=== PATIENT | male | born 1945 | race Caucasian/White ===

== ENCOUNTER 2020-01-24 11:57 | Inpatient (IN) | payer MEDICARE, OTHER, SELFPAY ==
[2020-01-24] VITALS (21 sets, daily range): BP systolic 64–125; BP diastolic 51–79; PULSE 60–120; RESP 19–32; TEMP 38.2–41.2; O2SAT 93–99
--- NOTE | ~2020-01-24 | CT_ITS ---
EXAMINATION: CT brain wo con DATE: 01/24/2020 13:53 INDICATION: Slurred speech. Unsteady gait. TECHNIQUE: Computed tomography (CT) of the head was performed without intravenous contrast. The mA wa s adjusted according to patient size. Iterative reconstruction technique was employed. The dose-lengt h product was 681.00 mGy-cm. COMPARISON: None FINDINGS: There is no intracranial hemorrhage, acute infarction, or abnormal intracranial mass lesion . There are scattered areas of low attenuation in the cerebral white matter. The ventricles are moshe l in size. There is mucosal thickening in the paranasal sinuses. There are likely changes of left ocu lar lens replacement surgery. The mastoid air cells are normal. IMPRESSION: 1. Mild nonspecific cerebral white matter disease, which likely represents chronic small vessel ische erickson disease. Reviewed, dictated and finalized at location A. IMPRESSION: 1. Mild nonspecific cerebral white matter disease, which likely represents conservation scientist malena small vessel ischemic disease.
--- NOTE | ~2020-01-24 | US_ITS ---
EXAMINATION: US venous doppler [facility] DATE: 01/25/2020 14:55 INDICATION: Atrial fibrillation. Elevated d-dimer. TECHNIQUE: Grayscale ultrasound images without and with compression and Doppler ultrasound images of the bilateral lower extremity veins were obtained. COMPARISON: None. FINDINGS: The visualized portions of right common femoral vein, profunda (deep) femoral vein, femoral vein, pop liteal vein, peroneal veins, posterior tibial veins, and greater saphenous vein outflow are patent. The visualized portions of left common femoral vein, profunda femoral vein, femoral vein, popliteal v ein, peroneal veins, posterior tibial veins, and greater saphenous vein outflow are patent. IMPRESSION: 1. No deep venous thrombosis. Reviewed, dictated and finalized at location A.
--- NOTE | ~2020-01-24 | XR_ITS ---
EXAMINATION: XR chest 1V portable DATE: 01/26/2020 05:33 INDICATION: Fever. TECHNIQUE: A single frontal view of the chest was obtained on 2 radiographs. COMPARISON: Chest 2 views 01/24/2020 FINDINGS: There are mild airspace opacities in the lower lung zones. No pleural effusion or pneumotho rax. The heart size is normal. IMPRESSION: 1. Stable mild airspace opacities in the lower lung zones, likely atelectasis. Reviewed, dictated and finalized at location A.
--- NOTE | ~2020-01-24 | CT_ITS ---
EXAMINATION: CT abdomen pelvis wo con DATE: 01/26/2020 11:04 INDICATION: Fever of unknown origin TECHNIQUE: Computed tomography (CT) of the abdomen and pelvis was performed without intravenous contr ast. The dose-length product (DLP) was 1208.95 mGy-cm. Automated exposure control and iterative recon struction technique were employed. COMPARISON: None FINDINGS: The lung bases are clear. The heart size is normal. There is a small sliding hiatal hernia. The liver, spleen, pancreas, and gallbladder are normal. The left adrenal gland is normal. Low-atten uation masses of the right adrenal gland measuring up to 12 mm are consistent with adenomas. The kidn eys are unremarkable. There is calcified atherosclerosis of the aorta and many of the other arteries. Colonic diverticulosis is present without evidence of diverticulitis. No pathologically enlarged abd ominal or pelvic lymph nodes are identified. There is no free intraperitoneal gas or evidence of raisa l obstruction. There is moderate lumbar spondylosis. There is moderate bilateral hip osteoarthritis. IMPRESSION: 1. No CT correlate for the patient's symptoms. Reviewed, dictated and finalized at location A.
--- NOTE | ~2020-01-24 | XR_ITS ---
EXAMINATION: XR chest 2V DATE: 01/24/2020 13:07 INDICATION: Confusion and weakness. Sepsis. TECHNIQUE: Frontal and lateral views of the chest were obtained on 3 radiographs. COMPARISON: None. FINDINGS: There is mild atelectasis in the lower lung zones. No pleural effusion or pneumothorax. The heart size is normal. IMPRESSION: 1. Mild atelectasis in the lower lung zones. Reviewed, dictated and finalized at location A.
--- NOTE | 2020-01-24 12:14 | ECG_ITS ---
Measurements Intervals [place] Rate: 111 P: 85 LA: 220 QRS: -6 QRSD: 101 T: 66 QT: 327 QTc: 446 Interpretive Statements SINUS TACHYCARDIA WITH FIRST DEGREE AV BLOCK FREQUENT VENTRICULAR PREMATURE COMPLEXES INCOMPLETE RIGHT BUNDLE BRANCH BLOCK ABNORMAL ECG Electronically Signed On 01-24-2020 14:21:17 CDT by Mike Burton D.O.
[2020-01-24 12:45] LABS: Basophils Absolute Auto 0.1 K/mm3 (0.0-0.1); Basophils Percent Auto 0.6 % (0.2-1.2); Eosinophils Percent Auto 0.1 % (0-4.4); Hematocrit 46.6 % (42.0-52.0); Hemoglobin 15.2 g/dL (14.0-18.0); Immature Granulocyte Absolute 0.11 K/mm3 (0.00-0.031); Immature Granulocyte Percent A 0.8 % (0-0.5); Lymphocytes Absolute Auto 0.81 K/mm3 (0.9-3.2); Lymphocytes Percent Auto 5.6 % (18.3-44.2); Mean Corpuscular HGB Conc 32.6 g/dl (32-36); Mean Corpuscular Hemoglobin 32.6 pg (26-34); Mean Platelet Volume 11.9 fl (7.4-10.4); Monocytes Absolute Auto 0.2 K/mm3 (0.1-0.6); Monocytes Percent Auto 1.5 % (2.6-8.5); Neutrophils Absolute Auto 13.1 K/mm3 (1.3-6.7); Neutrophils Percent Auto 91.4 % (45.5-73.1); Platelet Count Result 171 k/mm3 (150-375); Red Blood Count 4.66 M/mm3 (4.6-6.20); Red Cell Distribution Width 13.7 % (11.5-14.5); White Blood Count 14.4 K/mm3 (4.5-10.0)
[2020-01-24 13:02] LABS: Lactic Acid Reflex 2.6 mmol/L (0.7-2.1)
[2020-01-24 13:03] LABS: Alanine Aminotransferase 26 U/L (4-50); Albumin Level 4.2 g/dL (3.5-5.1); Alkaline Phosphatase 58 U/L (38-126); Aspartate Amino Transferase 32 U/L (17-59); Bilirubin,Total 1.4 mg/dL (0.2-1.3); Blood Urea Nitrogen 19 mg/dL (9-20); CRP 2.7 mg/dL (<1.0); Carbon Dioxide 26 mmol/L (22-30); Chloride 101 mmol/L (98-107); Estimated CRCL calculation 70 ml/min; Estimated Glomerular Filt Rate > 60; Glucose 97 mg/dL (75-110); Sodium 135 mmol/L (137-145)
[2020-01-24 13:05] LABS: Add Urine Microscopic? YES; Appearance Urine Clear (Clear); Bilirubin Urine Negative (Negative); Blood Urine Negative (Negative); Color Urine Yellow (Yellow); Glucose Urine UA Negative (Negative); Ketones Urine Negative (Negative); Leukocyte Esterase Ur Negative LEU/UL (Negative); Mucus Urine Few /lpf; Nitrate Urine Negative (Negative); Protein Urine Negative (Negative); Specific Grav Ur 1.024 (1.001-1.035); Squamous Epithelial Cell Urine Rare /hpf (Few); WBC Urine 0-3 /hpf
--- NOTE | 2020-01-24 13:42 | ED.AMS ---
HPI - Altered Mental Status General Chief Complaint: Altered Mental Status Stated Complaint: Neuro symptoms Source: RN notes reviewed History of Present Illness HPI narrative: Patient presents emergency department from home via EMS for fever. History is per the patient as well as is present. The patient is currently dog sitting for his daughter he was last seen yesterday and was normal. This morning the patient had called his asking for help. They arrived the patient was noted to have some confusion difficulty answering questions. Patient currently presents with febrile he is awake and alert and able to answer some questions able to state his name but then when asked to describe answers to other questions these answers do not make sense patient denies any current pain he denies any headaches chest pain cough abdominal pain nausea or vomiting patient is currently on Pradaxa for history of A. fib Related Data Home Medications Medication Instructions Recorded Confirmed acetaminophen [Tylenol 8 Hour] 650 mg PO Q8H 01/24/20 aspirin 81 mg PO DAILY 01/24/20 atorvastatin 40 mg PO HS 01/24/20 bupropion HCl 150 mg PO QAM 01/24/20 dabigatran etexilate [Pradaxa] 150 mg PO BID 01/24/20 docusate sodium [Colace Clear] 50 mg PO DAILY 01/24/20 lisinopril 5 mg PO DAILY 01/24/20 loratadine 10 mg PO DAILY 01/24/20 metoprolol succinate 12.5 mg PO DAILY 01/24/20 tamsulosin 0.4 mg PO HS 01/24/20 Allergies Allergy/AdvReac Type Severity Reaction Status Date / Time Sulfa (Sulfonamide Allergy Other Verified 01/24/20 12:21 Antibiotics) Review of Systems Review of Systems: Narrative: Gen.: Reports fever Eyes: Denies eye pain or visual change ENT: Denies congestion Respiratory: Denies shortness of breath or cough CV: Denies chest pain or palpitations GI: Denies abdominal pain nausea, emesis or diarrhea denies burning, urgency, frequency or hematuria Musculoskeletal: Denies back pain or muscle pain Neuro: Denies numbness, tingling, weakness or focal weakness Skin: Denies rash Except as documented, all other systems reviewed and negative [facility] Past Medical History Medical History (Updated 01/24/20 @ 17:37 by Irving Ortiz DO) Atrial fibrillation Hyperlipidemia Hypertension Social History Social History (Updated 01/24/20 @ 16:11 by KATJA Bryan Smoking status: Never smoker Gender identity (if verbalized by the patient): Male Exam Narrative: Exam Narrative: APPEARANCE: No acute distress, nontoxic, resting in bed EYES: EOMI HEENT: Normocephalic, atraumatic, nares patent, oral mucosa dry erythema exudate posterior pharynx Neck: Supple full range of motion without pain no meningismus RESPIRATORY: No respiratory distress Clear to auscultation bilaterally with no rhonchi wheezing or rales. CARDIOVASCULAR: Regular rate and rhythm without murmurs rubs or gallops. ABDOMINAL: Soft, nontender, nondistended, no rebound or guarding MUSCULOSKELETAl: Moves all extremities. No clubbing, cyanosis or edema. NEURO: Awake and alert x 1. Following commands, speech normal, no focal deficits SKIN:: Warm, dry. No rashes lesions or abrasions PSYCHIATRIC: Normal affect/mood, Course Course Emergency Course: Called and discussed with Dr. velasquez for infectious disease. At this time with patient having no headache and no managements with no nuchal rigidity recommends no treatment for meningitis at this time. With UA and chest x-ray both negative recommends no antibiotics at this time. Agrees with plan for COVID swab Patient will wax and wane with his orientation he will at times be awake and alert x3 other times when the patient's fever spikes back up he will become less awake and alert the patient continues to deny any complaints though even when ANO x3 denies any headaches there is no nuchal rigidity with full range of motion of the neck Discussed with JAHAIRA Hamlin for Dr. Dominguez presentation work-up. Agrees with adm
[2020-01-24 14:08] LABS: INR 1.4; Partial Thromboplastin Time 33.5 SECONDS (22.3-36.8); Prothrombin Time 16.4 Seconds (11.1-14.7)
[2020-01-24 15:39] LABS: Reflex Lactic Acid Yes or No Add Lactic
[2020-01-24 16:07] LABS: Lactic Acid 3.9 mmol/L (0.7-2.1)
[2020-01-24] MEDS: KETOROLAC 15 MG/ML VIAL (*BKC) IV PUSH (16:23)
[2020-01-24] MEDS: SODIUM CHLORIDE 0.9% IV 1,000 ML 125 ML IV CONT (18:59)
--- NOTE | 2020-01-24 19:31 | PM.IMHP ---
H&P: HPI History of Present Illness Chief complaint: Sepsis/fever of unknown origin Narrative: Irving Huston is a 74 year old male To the [facility] with a fever. The patient's was in the emergency earlier and providing information for the ED physician. The patient was currently dog sitting for his daughter was last seen yesterday as normal. This morning he called his asking for help. The patient was confused and did having difficulty answering questions. He is answering some questions but others he is forgetting. The patient could not recall where he was now. He complains of feeling hot. No abdominal pain no complaints of any headaches any nausea or vomiting. He has a history of atrial fibrillation is on Pradaxa. The patient's temperature is currently 103.8?. He had IV Tylenol. The ED physician was unable to provide a spinal tap because the patient is on Pradaxa. We did consult Infectious Disease and initially Dr. velasquez stated he did not want any antibiotics. However Dr. velasquez was called back again to discuss the patient's fever that would not go down with Tylenol. A COVID test was taken and the patient was placed on Rocephin at that time. Once the patient was in the intensive care unit we applied a cooling blanket. Montero catheter with the temperature measurement was placed as well. The patient is very anxious and having difficulty answering questions. He tells me that he does not have any lung disease but had some heart disease and could not explain what type of heart disease he had. He denies any chest pain at this time. Urine was negative for any UTI. Mild nonspecific cerebral white matter disease which likely represents chronic small vessel ischemic disease. Chest x-ray was read as mild atelectasis in the lower lung zones. Patient was started on IV fluids in the emergency room, IV Tylenol, IV Toradol and Rocephin. Source of fever is unknown. Infectious Disease has been consulted. Review of Systems Review of Systems: All systems reviewed & are unremarkable except as noted in HPI and below Constitutional: Constitutional: Reports as per HPI and Reports no additional constitutional complaints Eyes: Eyes: Reports as per HPI and Reports no additional eye complaints ENT: Reports system reviewed and no additional complaints, except as documented and Reports Normal hearing present Cardiovascular: Cardiovascular: Reports no additional cardiovascular complaints Respiratory: Respiratory: Reports no additional respiratory complaints and Reports no additional respiratory complaints Gastrointestinal: Gastrointestinal: Reports as per HPI and Reports no additional gastrointestinal complaints Musculoskeletal: Musculoskeletal: Reports no additional musculoskeletal complaints Integumentary/Breasts: Skin/Breast: Reports system reviewed and no additional complaints, except as docu and Reports as per HPI Neurologic: Reports system reviewed and no additional complaints, except as documented, Reports as per HPI and Reports Normal hearing present Psychiatric: Psychiatric: Reports no additional psychiatric complaints and Reports as per HPI Endocrine: Endocrine: Reports no additional endocrine complaints Hematologic/Lymphatic: Hematologic/Lymphatic: Reports no additional hematologic/lymphatic complaints Allergic/Immunologic: Allergic/Immunologic: Reports no additional allergic/immunologic complaints [facility] Past Medical History Medical History (Updated 01/24/20 @ 19:52 by Yakelin Cardenas NP) Atrial fibrillation Hyperlipidemia Hypertension Surgical History Surgical History (Updated 01/24/20 @ 19:57 by Yakelin Cardenas NP) H/O left knee surgery 1963 History of appendectomy Family History Family History (Updated 01/24/20 @ 19:59 by Yakelin Cardenas NP) Mother Diabetes mellitus Social History Social History (Updated 01/24/20 @ 19:53 by Yakelin Cardenas NP) Social History: The patient tells me that h
[2020-01-24] MEDS: DABIGATRAN ETEXILATE 150 MG CAPSULE PO (20:17)
[2020-01-24] MEDS: LORAZEPAM INJ 2 MG/ML VIAL 0.5 MG IV PUSH (20:17)
[2020-01-24] MEDS: TAMSULOSIN HCL 0.4 MG CAPSULE PO (20:17)
--- NOTE | 2020-01-24 20:35 | ADMGEN ---
This patient, Irving Huston, was admitted to Intensive Care Unit-4 on 01-24-20 at 1745. Patient/family oriented to hospital policies and general routines including ID bracelet, bed and alarms, visiting hours, pain management, procedures, bathroom and other care routines, personal items, smoking policy, room service/diet, and visiting hours. Valuables list has been completed. Information on how to activate the Rapid Response Team has been discussed. Patient/Family are encouraged to report perceived risks to care and to ask questions if they do not understand what they are told or what they should do.
--- NOTE | 2020-01-24 22:55 | PC.NURSE ---
Patient still agressive and thrashing in bed post ativan. Yakelin Cardenas CADASTRAL SURVEYOR notified. Give 5mg Haldol IM x1 now
[2020-01-24] MEDS: HALOPERIDOL LACTATE 5 MG/ML VIAL IM (23:16)
[2020-01-25] VITALS (18 sets, daily range): BP systolic 92–156; BP diastolic 54–68; PULSE 75–109; RESP 12–27; TEMP 36.3–38.9; O2SAT 91–99
--- NOTE | 2020-01-25 01:09 | PC.NURSE ---
Cooling blanket turned off. Temp 100.3 Continue to monitor.
[2020-01-25] MEDS: SODIUM CHLORIDE 0.9% IV 1,000 ML 125 ML IV CONT (02:31)
[2020-01-25] MEDS: LORAZEPAM INJ 2 MG/ML VIAL 0.5 MG IV PUSH (02:31)
[2020-01-25 05:00] LABS: Hematocrit 40.8 % (42.0-52.0); Hemoglobin 13.5 g/dL (14.0-18.0); Immature Platelet Fraction Pct 7.4 % (0.9-11.2); Mean Corpuscular HGB Conc 33.1 g/dl (32-36); Mean Corpuscular Hemoglobin 32.9 pg (26-34); Mean Corpuscular Volume 99.5 fl (80-100); Mean Platelet Volume 11.6 fl (7.4-10.4); Platelet Count Result 127 k/mm3 (150-375); Red Cell Distribution Width 14.2 % (11.5-14.5); White Blood Count 22.5 K/mm3 (4.5-10.0)
[2020-01-25 05:10] LABS: Lactic Acid Reflex 2.8 mmol/L (0.7-2.1)
[2020-01-25 05:18] LABS: Alanine Aminotransferase 31 U/L (4-50); Albumin Level 3.1 g/dL (3.5-5.1); Alkaline Phosphatase 41 U/L (38-126); Aspartate Amino Transferase 78 U/L (17-59); Bilirubin,Total 1.1 mg/dL (0.2-1.3); Blood Urea Nitrogen 24 mg/dL (9-20); Calcium 7.7 mg/dL (8.4-10.2); Carbon Dioxide 24 mmol/L (22-30); Chloride 106 mmol/L (98-107); Estimated CRCL calculation 65 ml/min; Estimated Glomerular Filt Rate 59; Glucose 83 mg/dL (75-110); Potassium 4.3 mmol/L (3.4-5.0); Sodium 135 mmol/L (137-145)
[2020-01-25 05:48] LABS: Band Neutrophils Percent 17 % (0-6); Lymphocytes Absolute Manual 1.12 K/mm3 (1.1-4.5); Monocytes Absolute Manual 1.12 K/mm3 (0.1-0.90); Monocytes Percent Manual 5 % (3-9); Neutrophils Absolute Manual 20.25 K/mm3 (1.3-6.7); Neutrophils Percent Manual 73 % (46-73); Total Cells Counted 100
[2020-01-25 07:54] LABS: Reflex Lactic Acid Yes or No Add Lactic
[2020-01-25] MEDS: buPROPion HCL XL (24 HR) 150 MG TABCR PO (08:12)
[2020-01-25] MEDS: DOCUSATE SODIUM LIQ 100 MG/10 ML UDC 50 MG PO (08:12)
[2020-01-25] MEDS: DABIGATRAN ETEXILATE 150 MG CAPSULE PO ×2 (08:12→17:55)
[2020-01-25] MEDS: ASPIRIN 81 MG ENTERIC TABLET PO (08:12)
[2020-01-25 08:14] LABS: Hematocrit 42.2 % (42.0-52.0); Hemoglobin 13.9 g/dL (14.0-18.0); Immature Platelet Fraction Pct 7.4 % (0.9-11.2); Mean Corpuscular HGB Conc 32.9 g/dl (32-36); Mean Corpuscular Hemoglobin 32.9 pg (26-34); Mean Corpuscular Volume 99.8 fl (80-100); Mean Platelet Volume 11.7 fl (7.4-10.4); Platelet Count Result 129 k/mm3 (150-375); Red Blood Count 4.23 M/mm3 (4.6-6.20); Red Cell Distribution Width 14.2 % (11.5-14.5); White Blood Count 22.7 K/mm3 (4.5-10.0)
[2020-01-25 08:25] LABS: Lactic Acid 1.8 mmol/L (0.7-2.1)
[2020-01-25 08:26] LABS: Alanine Aminotransferase 29 U/L (4-50); Albumin Level 3.2 g/dL (3.5-5.1); Alkaline Phosphatase 41 U/L (38-126); Aspartate Amino Transferase 92 U/L (17-59); Bilirubin,Total 1.1 mg/dL (0.2-1.3); Blood Urea Nitrogen 24 mg/dL (9-20); Calcium 7.5 mg/dL (8.4-10.2); Carbon Dioxide 25 mmol/L (22-30); Chloride 107 mmol/L (98-107); Estimated CRCL calculation 70 ml/min; Estimated Glomerular Filt Rate > 60; Glucose 89 mg/dL (75-110); Potassium 4.4 mmol/L (3.4-5.0); Sodium 137 mmol/L (137-145)
[2020-01-25 08:30] LABS: Band Neutrophils Percent 16 % (0-6); Lymphocytes Absolute Manual 1.13 K/mm3 (1.1-4.5); Metamyelocytes Percent 1 %; Monocytes Absolute Manual 0.22 K/mm3 (0.1-0.90); Monocytes Percent Manual 1 % (3-9); Neutrophils Absolute Manual 21.11 K/mm3 (1.3-6.7); Neutrophils Percent Manual 77 % (46-73); Platelet Estimate Decreased (Adequate); Total Cells Counted 100
[2020-01-25 08:36] LABS: D Dimer 8.18 ug/mL (<0.48)
[2020-01-25 08:55] LABS: CRP 26.9 mg/dL (<1.0)
--- NOTE | 2020-01-25 13:04 | WPDINFPN2 ---
Progress Note: A&P Assessment and Plan (1) Fever of unknown origin (FUO): Code(s): R50.9 - Fever, unspecified Status: Acute Assessment and Plan: 1. Fever with rigors, suspect BSI but source unknown 2. BPH 3. Sulfa allergy REC Ctx #1. No LP needed. CT abd/pelvis. Subjective Date/time seen: 01/25/20 13:04 Objective Data Vital Signs Vital Signs: Vital Signs - 24 hr 01/24/20 14:09 01/24/20 17:01 01/24/20 17:30 Temperature 38.2 C H Pulse Rate 105 H 60 Respiratory Rate 22 H 20 Blood Pressure 99/51 L 98/68 L Pulse Oximetry 96 95 01/24/20 17:45 01/24/20 19:00 01/24/20 19:01 Temperature 39.3 C H 40.7 C H 41.2 C H Pulse Rate 105 H Respiratory Rate 27 H Blood Pressure 123/72 Pulse Oximetry 97 01/24/20 19:02 01/24/20 19:10 01/24/20 19:15 Temperature 40.2 C H 39.9 C H 39.9 C H Pulse Rate 112 H Respiratory Rate 28 H Blood Pressure 64/51 L Pulse Oximetry 94 01/24/20 19:18 01/24/20 19:31 01/24/20 20:00 Temperature 39.9 C H 39.8 C H Pulse Rate 111 H 113 H 113 H Respiratory Rate 26 H 19 27 H Blood Pressure 114/60 113/61 Pulse Oximetry 94 94 99 01/24/20 20:01 01/24/20 21:01 01/24/20 22:00 Temperature 39.4 C H 39.1 C H Pulse Rate 111 H 118 H 119 H Respiratory Rate 21 H 27 H Blood Pressure 125/79 113/63 Pulse Oximetry 96 01/24/20 22:01 01/24/20 23:00 01/24/20 23:36 Temperature 38.6 C H 38.9 C H Pulse Rate 115 H 119 H 117 H Respiratory Rate 25 H 29 H 30 H Blood Pressure 98/68 L 116/60 Pulse Oximetry 95 98 97 01/24/20 23:52 01/25/20 00:00 01/25/20 01:00 Temperature 38.9 C H 38.9 C H 38.0 C H Pulse Rate 109 H 94 Respiratory Rate 26 H 22 H Blood Pressure 114/58 L 127/68 Pulse Oximetry 95 95 01/25/20 02:00 01/25/20 02:59 01/25/20 03:39 Temperature 37.4 C 37.2 C Pulse Rate 92 88 86 Respiratory Rate 20 19 19 Blood Pressure 156/66 H 92/58 L Pulse Oximetry 92 91 92 01/25/20 04:00 01/25/20 05:00 01/25/20 05:57 Temperature 36.8 C 37.1 C Pulse Rate 92 79 75 Respiratory Rate 24 H 18 Blood Pressure 115/56 L 113/62 Pulse Oximetry 95 97 01/25/20 06:00 01/25/20 07:56 01/25/20 08:00 Temperature 37.1 C 37.2 C Pulse Rate 80 81 Respiratory Rate 20 25 H Blood Pressure 108/64 110/61 Pulse Oximetry 95 95 99 01/25/20 10:00 01/25/20 12:00 Temperature 37.5 C Pulse Rate 90 83 Respiratory Rate 24 H Blood Pressure 108/64 Pulse Oximetry 98 Intake/Output Intake/Output: Intake & Output 01/22/20 01/23/20 01/24/20 01/25/20 23:59 23:59 23:59 23:59 Intake Total 3550 3120 Output Total 100 2300 Balance 3450 820 Meds/Results Medications: Active Medications Generic Name Dose Route Start Last Admin Trade Name Freq PRN Reason Stop Dose Admin Aspirin 81 mg 01/25/20 09:00 01/25/20 08:12 Aspirin Ec PO 81 mg DAILY RIRI Administration Bupropion HCl 150 mg 01/25/20 09:00 01/25/20 08:12 Wellbutrin Xl (24 Hr) PO 150 mg QAM RIRI Administration Dabigatran 150 mg 01/24/20 17:00 01/25/20 08:12 Pradaxa PO 150 mg BID RIRI Administration Docusate Sodium 50 mg 01/25/20 09:00 01/25/20 08:12 Colace Liquid PO 02/24/20 09:01 50 mg DAILY RIRI Administration Ceftriaxone Sodium/Dextrose 1 gm in 50 mls @ 100 mls/hr 01/25/20 09:00 01/25/20 08:35 Rocephin 1 Gm/D5w 50 Ml IVPB Infused Q24H RIRI Infusion Acetaminophen 1,000 mg in 100 mls @ 400 mls/hr 01/24/20 18:08 01/25/20 00:07 Ofirmev 1,000 Mg Ivpb IVPB 01/25/20 18:09 Infused Q6H PRN Infusion Pain Rated 4-6 Lorazepam 0.5 mg 01/24/20 20:01 01/25/20 02:31 Ativan Inj IV PUSH 0.5 mg Q6H PRN Administration Anxiety Tamsulosin HCl 0.4 mg 01/24/20 21:00 01/24/20 20:17 Flomax PO 0.4 mg HS RIRI Administration Radiology Results: ITS Impressions Chest X-Ray 01/24/20 13:10 IMPRESSION: 1. Mild atelectasis in the lower lung zones. Head CT 01/24/20 14:02 IMPRESSION: 1. Mild nonspec
[2020-01-25 14:16] LABS: SARS-CoV-2 RNA PCR Negative
--- NOTE | 2020-01-25 18:10 | PM.IMPN ---
Progress Note: A&P Assessment and Plan (1) Fever of unknown origin (FUO): Code(s): R50.9 - Fever, unspecified Status: Acute Assessment and Plan: Infectious disease Dr. velasquez has been consulted. Initially no antibiotics were prescribed however now the patient is on Rocephin 1 g. There was some suspicion for meningitis however the patient was unable to receive a spinal tap is he is on Pradaxa for his atrial fibrillation. Patient has no source of infection at this time. White count is noted to be 14.4. His neutrophil percentage is 91.4. His lactic is 3.9. C reactive protein is 2.7. Chest x-ray and urine oral clear. I have thought about getting his belly as well. However the patient is so agitated at this time I am not sure full be able to get him in the CT scanner. He does not act like he has any abdominal discomfort. Although the stated about a week ago he was complaining of some abdominal discomfort. Patient has a fever of 103.8. Please follow cultures. Patient has been swabbed for covid 19. 01/25/20 18:10 Patient is 74-year-old male with history of atrial fibrillation on Pradaxa patient was doing essentially find day before is coming to hospital, on the day of the admission patient called his to get some help however patient was quite confused was not able to answer appropriately and may need a he did not make any sense patient was brought to the emergency department for further evaluation his temperature was 103? and denied complaint of headache, chest pain shortness of breath cough abdominal pain nausea or vomiting, concerned that patient may have meningitis but LP was not done as patient is on Pradaxa, ID was consulted Rocephin was started, today patient is more alert, also concern the patient may have a COVID-19 and being tested and under isolation, (2) Sepsis: Code(s): A41.9 - Sepsis, unspecified organism Status: Acute Assessment and Plan: Patient's blood pressure is on the soft side and he is tachycardic his lactic is elevated. He is receiving some IV fluids and he is on Rocephin IV piggyback. (3) Suspected COVID-19 virus infection: Code(s): Z20.828 - Contact with and (suspected) exposure to other viral communicable diseases Status: Acute Assessment and Plan: Patient is in isolation her when we are awaiting results (4) BPH (benign prostatic hyperplasia): Code(s): N40.0 - Benign prostatic hyperplasia without lower urinary tract symptoms Status: Chronic Assessment and Plan: Continue with his tamsulosin (5) Hypertension: Code(s): I10 - Essential (primary) hypertension Status: Chronic Assessment and Plan: His blood pressure is on the soft side room holding his lisinopril and metoprolol. (6) Hyperlipidemia: Code(s): E78.5 - Hyperlipidemia, unspecified Status: Chronic Assessment and Plan: I am holding atorvastatin at this time. (7) Atrial fibrillation: Code(s): I48.91 - Unspecified atrial fibrillation Status: Chronic Assessment and Plan: Continue with Pradaxa but holding metoprolol due to his low blood pressure. (8) Elevated d-dimer: Code(s): R79.89 - Other specified abnormal findings of blood chemistry Status: Acute Assessment and Plan: In setting of possible COVID-19 D-dimer was done which is elevated however patient is on urine Pradaxa will do lower extremity Doppler and further recommendation to follow Subjective Date/time seen: 01/25/20 18:10 Patient is 74-year-old male with history of atrial fibrillation on Pradaxa patient was doing essentially find day before is coming to hospital, on the day of the admission patient called his to get some help however patient was quite confused was not able to answer appropriately and may need a he did not make any sense patient was brought to the emergency department for further evaluation his temperature was 103? and den
--- NOTE | 2020-01-25 18:13 | CONS_ITS ---
DATE OF CONSULTATION: 01/25/2020 REASON FOR CONSULTATION: Fever. HISTORY OF PRESENT ILLNESS: The patient is a 74-year-old male who 2 years ago had an acute episode of shaking chills. He did not require hospitalization or medical evaluation and thought nothing more of it. He was otherwise well until 1 day before admission when he developed again shaking chills described as rigors along with some weakness. He had a single headache episode 1 week before. He did not check his temperature at home. He presented to the emergency room yesterday where he was found to be febrile with tachycardia and he was admitted. He has been started on ceftriaxone, now day 2 and consultation requested. He has been on no antibiotics in the last 4 weeks for any reason. No surgeries in the last 3 months. Denies any skin trauma, nausea, vomiting, diarrhea, cough, dyspnea, sputum production, dysphagia. His weight has gone up. He does have a sensation of epigastric fullness, but no abdominal pain. No other abdominal complaints. He does feel like he can empty his bladder well. HABITS: Quarter pack per day smoker. No alcohol. PRESENT MEDICATIONS: No immunosuppressants. ALLERGIES: SULFA. PAST MEDICAL HISTORY: Carries a diagnosis of BPH, AF, hyperlipidemia, hypertension, appendectomy, left knee surgery, not involving a joint replacement. REVIEW OF SYSTEMS: 14-point review otherwise negative. FAMILY HISTORY: Not pertinent to his present illness. SOCIAL HISTORY: He is . He is retired from [employer]. PHYSICAL EXAMINATION: GENERAL: This is an elderly male who appears younger than his actual age. No acute distress. VITAL SIGNS: T-max 41.2, apparently a core temperature, now afebrile 108/64, 83, 24, 98% on room air. SKIN: No rashes. Warm and dry. No breaks in the skin. NODES: He has no cervical or axillary adenopathy. EENT: Conjunctivae normal. Pupils equal, round, and reactive to light. The oropharynx, oral mucosa normal. Teeth in excellent repair. NECK: No masses or thyromegaly. LUNGS: Clear to auscultation and percussion. CHEST: Equal expansion. Normal AP diameter. No indwelling vascular devices. CARDIAC: Regular rate and rhythm. No murmur, gallop, or rub. Pulses are 2+ equal. ABDOMEN: Obese, nontender. No mass. No organomegaly. He has no firmness in the epigastrium nor elsewhere. : No catheter in place. EXTREMITIES: Without clubbing, cyanosis, or edema. Well perfused. LABORATORY DATA: Blood and urine cultures in process. Other laboratory findings, white count 14.4 yesterday, 22.7 today, hemoglobin 13.9, platelets are 129. Differential shows a moderate left shift. D-dimer is elevated. His chemistry panel today is normal other than a BUN of 24 and an AST of 92, ALT was normal, CRP 27, albumin 3.2. His urinalysis, 2 urobilinogen, 6-10 red cells, few mucus threads. RADIOLOGY: Chest x-ray is normal. His CT of the brain, senescent changes. ASSESSMENT: 1. Acute febrile illness of uncertain etiology. Symptoms suggest a bloodstream infection with viral or bacterial cause. Other than his abdominal fullness in the epigastrium, he has no localizing signs or symptoms. He has no ill household contacts and suspicion for coronavirus is very low. 2. Past diagnosis of benign prostatic hypertrophy, but no voiding symptoms admitted to me. 3. Leukocytosis, probably due to the above as well. RECOMMENDATIONS: 1. Ceftriaxone empirically given his elevated lactate level and other clinical findings, rather than observe off antibiotics. 2. No lumbar puncture needed at this time. His mental status on interview today is entirely normal. 3. CT abdomen and pelvis. 4. Follow up on above microbiology testing. Thank you ve
--- NOTE | 2020-01-25 19:00 | PC.NURSE ---
This patient, Irving Huston, was transferred to [facility] via wheelchair on 01/25/20 at 1850. Personal belongings sent with patient. Belongings list checked and signed with receiving RN. Report given to JOEL Lozada. Appropriate documentation sent with patient.
--- NOTE | 2020-01-25 19:10 | PC.NURSE ---
This patient, Irving Huston, was received from ICU 4 on 01/25/20 at 1850. Personal belongings list checked and signed. Patient/family oriented to unit policies and routines
[2020-01-25] MEDS: TAMSULOSIN HCL 0.4 MG CAPSULE PO (22:12)
[2020-01-26] VITALS: BP 120/54; PULSE 76; RESP 16; TEMP 36.2; O2SAT 96
[2020-01-26 05:23] LABS: Basophils Absolute Auto 0.1 K/mm3 (0.0-0.1); Basophils Percent Auto 0.6 % (0.2-1.2); Eosinophils Absolute Auto 0.1 K/mm3 (0-0.3); Eosinophils Percent Auto 0.6 % (0-4.4); Hematocrit 38.6 % (42.0-52.0); Hemoglobin 12.8 g/dL (14.0-18.0); Immature Granulocyte Percent A 0.6 % (0-0.5); Lymphocytes Absolute Auto 1.79 K/mm3 (0.9-3.2); Lymphocytes Percent Auto 11.4 % (18.3-44.2); Mean Corpuscular HGB Conc 33.2 g/dl (32-36); Mean Corpuscular Hemoglobin 32.5 pg (26-34); Mean Platelet Volume 12.8 fl (7.4-10.4); Monocytes Absolute Auto 0.7 K/mm3 (0.1-0.6); Monocytes Percent Auto 4.1 % (2.6-8.5); Neutrophils Percent Auto 82.7 % (45.5-73.1); Platelet Count Result 93 k/mm3 (150-375); Red Blood Count 3.94 M/mm3 (4.6-6.20); Red Cell Distribution Width 14.5 % (11.5-14.5); White Blood Count 15.8 K/mm3 (4.5-10.0)
[2020-01-26 05:55] LABS: Alanine Aminotransferase 32 U/L (4-50); Albumin Level 2.9 g/dL (3.5-5.1); Alkaline Phosphatase 45 U/L (38-126); Aspartate Amino Transferase 100 U/L (17-59); Bilirubin,Total 0.5 mg/dL (0.2-1.3); Blood Urea Nitrogen 21 mg/dL (9-20); CRP 26.3 mg/dL (<1.0); Calcium 7.9 mg/dL (8.4-10.2); Carbon Dioxide 27 mmol/L (22-30); Chloride 107 mmol/L (98-107); Estimated CRCL calculation 85 ml/min; Estimated Glomerular Filt Rate > 60; Glucose 82 mg/dL (75-110); Sodium 136 mmol/L (137-145)
[2020-01-26] MEDS: ASPIRIN 81 MG ENTERIC TABLET PO (09:38)
[2020-01-26] MEDS: DOCUSATE SODIUM LIQ 100 MG/10 ML UDC 50 MG PO (09:38)
[2020-01-26] MEDS: buPROPion HCL XL (24 HR) 150 MG TABCR PO (09:38)
[2020-01-26] MEDS: DABIGATRAN ETEXILATE 150 MG CAPSULE PO ×2 (09:38→17:08)
[2020-01-26 09:51] VITALS: BP 119/67; PULSE 73; RESP 16; TEMP 36.1; O2SAT 96
--- NOTE | 2020-01-26 12:42 | WPDINFPN2 ---
Progress Note: A&P Assessment and Plan (1) Fever of unknown origin (FUO): Code(s): R50.9 - Fever, unspecified Status: Acute Assessment and Plan: 1. Fever with rigors, due to Gram negative bacteremia with infection, source not identified as yet. I reviewed his CT personally (atherosclerosis, abundant stool, otherwise normal) also reviewed radiologist interpretation. Consider (+ hematuria), lower GI, doubt biliary/primary endovascular/pulmonary 2. BPH 3. Sulfa allergy REC Ctx #2, continue. If this is found to be Enterobacteriacae such as E coli, I favor tract as the source. No LP needed. IV therapy at least until 01/28 dose. Subjective Date/time seen: 01/26/20 12:42 Interval history: no new complaints, using BR without difficulty Exam Narrative: Exam Narrative: t max since last visit = 38.6 Const: General: no acute distress Eyes: General: appearance normal, both eyes and all related structures GI: Inspection: non-distended GI Palp: Yes Soft to palpation Skin: General skin exam: normal color and no rashes or lesions noted Extrem: General: normal to inspection and no edema Objective Data Vital Signs Vital Signs: Vital Signs - 24 hr 01/25/20 14:00 01/25/20 16:00 01/25/20 16:32 Temperature 38.6 C H 38.6 C H Pulse Rate 90 94 Respiratory Rate 27 H Blood Pressure 106/56 L Pulse Oximetry 98 01/25/20 17:05 01/25/20 22:00 01/26/20 00:00 Temperature 37.5 C 36.3 C L 36.2 C L Pulse Rate 84 76 Respiratory Rate 12 16 Blood Pressure 97/54 L 120/54 L Pulse Oximetry 95 96 01/26/20 09:51 Temperature 36.1 C L Pulse Rate 73 Respiratory Rate 16 Blood Pressure 119/67 Pulse Oximetry 96 Intake/Output Intake/Output: Intake & Output 01/23/20 01/24/20 01/25/20 01/26/20 23:59 23:59 23:59 23:59 Intake Total 3550 3890 500 Output Total 100 2700 700 Balance 3450 1190 -200 Meds/Results Medications: Active Medications Generic Name Dose Route Start Last Admin Trade Name Freq PRN Reason Stop Dose Admin Aspirin 81 mg 01/25/20 09:00 01/26/20 09:38 Aspirin Ec PO 81 mg DAILY RIRI Administration Bupropion HCl 150 mg 01/25/20 09:00 01/26/20 09:38 Wellbutrin Xl (24 Hr) PO 150 mg QAM RIRI Administration Dabigatran 150 mg 01/24/20 17:00 01/26/20 09:38 Pradaxa PO 150 mg BID RIRI Administration Docusate Sodium 50 mg 01/25/20 09:00 01/26/20 09:38 Colace Liquid PO 02/24/20 09:01 50 mg DAILY RIRI Administration Ceftriaxone Sodium/Dextrose 1 gm in 50 mls @ 100 mls/hr 01/25/20 09:00 01/26/20 10:21 Rocephin 1 Gm/D5w 50 Ml IVPB Infused Q24H RIRI Infusion Lorazepam 0.5 mg 01/24/20 20:01 01/25/20 02:31 Ativan Inj IV PUSH 0.5 mg Q6H PRN Administration Anxiety Tamsulosin HCl 0.4 mg 01/24/20 21:00 01/25/20 22:12 Flomax PO 0.4 mg HS RIRI Administration Radiology Results: ITS Impressions Head CT 01/24/20 14:02 IMPRESSION: 1. Mild nonspecific cerebral white matter disease, which likely represents chronic small vessel ischemic disease. Chest X-Ray 01/26/20 06:28 IMPRESSION: 1. Stable mild airspace opacities in the lower lung zones, likely atelectasis. Abdomen/Pelvis CT 01/26/20 11:39 IMPRESSION: 1. No CT correlate for the patient's symptoms. Labs Labs: Laboratory Results - last 24 hr 01/24/20 01/26/20 01/26/20 15:21 04:47 04:47 WBC 15.8 H RBC 3.94 L Hgb 12.8 L Hct 38.6 L MCV 98.0 MCH 32.5 MCHC 33.2 RDW 14.5 Plt Count 93 L MPV 12.8 H Immature Gran % (Auto) 0.6 H Neut % (Auto) 82.7 H Lymph % (Auto) 11.4 L [place] % (Auto) 4.1 Eos % (Auto) 0.6 Baso % (Auto) 0.6 Lymph # (Auto) 1.79 [place] # (Auto) 0.7 H Eos # (Auto) 0.1 Baso # (Auto) 0.1 Abs Immat Gran (auto) 0.10 H Absolute Neuts (auto) 13.0 H Absolute Nucleated RBC 0.0 Nucleated RBC % 0.0 Sodium 136 L Potassium 4.0 Chloride 107 Carbon D
[2020-01-26 14:15] VITALS: BP 118/66; PULSE 75; RESP 16; TEMP 36.8; O2SAT 99
--- NOTE | 2020-01-26 15:39 | PM.IMPN ---
Progress Note: A&P Assessment and Plan (1) Fever of unknown origin (FUO): Code(s): R50.9 - Fever, unspecified Status: Acute Assessment and Plan: Infectious disease Dr. velasquez has been consulted. Initially no antibiotics were prescribed however now the patient is on Rocephin 1 g. There was some suspicion for meningitis however the patient was unable to receive a spinal tap is he is on Pradaxa for his atrial fibrillation. Patient has no source of infection at this time. White count is noted to be 14.4. His neutrophil percentage is 91.4. His lactic is 3.9. C reactive protein is 2.7. Chest x-ray and urine oral clear. I have thought about getting his belly as well. However the patient is so agitated at this time I am not sure full be able to get him in the CT scanner. He does not act like he has any abdominal discomfort. Although the stated about a week ago he was complaining of some abdominal discomfort. Patient has a fever of 103.8. Please follow cultures. Patient has been swabbed for covid 19. 01/26/20 Patient is 74-year-old male with history of atrial fibrillation on Pradaxa patient was doing essentially find day before is coming to hospital, on the day of the admission patient called his to get some help however patient was quite confused was not able to answer appropriately and may need a he did not make any sense patient was brought to the emergency department for further evaluation his temperature was 103? and denied complaint of headache, chest pain shortness of breath cough abdominal pain nausea or vomiting, concerned that patient may have meningitis but LP was not done as patient is on Pradaxa, ID was consulted Rocephin was started, today patient is more alert, also concern the patient may have a COVID-19 and being tested and under isolation, patient COVID-19 test is negative, today patient complains of generalized body ache but no fever or chills patient seen by Dr. velasquez and suspect patient has a bacteremia will continue Rocephin will follow up on blood culture and further recommendation to follow, patient states he does have history of polymyalgia rheumatica, will get the record from [facility] and will discuss with Dr. velasquez he was symptoms are related to polymyalgia rheumatica however patient does not have any temporal headache or any visual problem (2) Sepsis: Code(s): A41.9 - Sepsis, unspecified organism Status: Acute Assessment and Plan: Patient's blood pressure is on the soft side and he is tachycardic his lactic is elevated. He is receiving some IV fluids and he is on Rocephin IV piggyback. Plan is above (3) Suspected COVID-19 virus infection: Code(s): Z20.828 - Contact with and (suspected) exposure to other viral communicable diseases Status: Acute Assessment and Plan: Patient is in isolation her when we are awaiting results is negative patient is off isolation (4) BPH (benign prostatic hyperplasia): Code(s): N40.0 - Benign prostatic hyperplasia without lower urinary tract symptoms Status: Chronic Assessment and Plan: Continue with his tamsulosin (5) Hypertension: Code(s): I10 - Essential (primary) hypertension Status: Chronic Assessment and Plan: His blood pressure is on the soft side room holding his lisinopril and metoprolol. (6) Hyperlipidemia: Code(s): E78.5 - Hyperlipidemia, unspecified Status: Chronic Assessment and Plan: I am holding atorvastatin at this time. (7) Atrial fibrillation: Code(s): I48.91 - Unspecified atrial fibrillation Status: Chronic Assessment and Plan: Continue with Pradaxa but holding metoprolol due to his low blood pressure. (8) Elevated d-dimer: Code(s): R79.89 - Other specified abnormal findings of blood chemistry Status: Acute Assessment and Plan: In setting of possible COVID-19 D-dimer was done which is elevated however
[2020-01-26] MEDS: TAMSULOSIN HCL 0.4 MG CAPSULE PO (21:28)
[2020-01-26] MEDS: MELATONIN 3 MG TABLET PO (21:28)
[2020-01-26 22:00] VITALS: BP 124/68; PULSE 74; RESP 20; TEMP 36.1; O2SAT 97
[2020-01-27 04:52] LABS: Basophils Absolute Auto 0.1 K/mm3 (0.0-0.1); Basophils Percent Auto 0.6 % (0.2-1.2); Eosinophils Absolute Auto 0.3 K/mm3 (0-0.3); Eosinophils Percent Auto 2.9 % (0-4.4); Hematocrit 38.4 % (42.0-52.0); Hemoglobin 12.8 g/dL (14.0-18.0); Immature Granulocyte Absolute 0.06 K/mm3 (0.00-0.031); Immature Granulocyte Percent A 0.6 % (0-0.5); Lymphocytes Percent Auto 15.8 % (18.3-44.2); Mean Corpuscular HGB Conc 33.3 g/dl (32-36); Mean Corpuscular Hemoglobin 32.6 pg (26-34); Mean Corpuscular Volume 97.7 fl (80-100); Mean Platelet Volume 12.2 fl (7.4-10.4); Monocytes Absolute Auto 0.8 K/mm3 (0.1-0.6); Monocytes Percent Auto 8.1 % (2.6-8.5); Neutrophils Absolute Auto 6.9 K/mm3 (1.3-6.7); Platelet Count Result 103 k/mm3 (150-375); Red Blood Count 3.93 M/mm3 (4.6-6.20); Red Cell Distribution Width 14.6 % (11.5-14.5); White Blood Count 9.5 K/mm3 (4.5-10.0)
[2020-01-27 05:27] LABS: Alanine Aminotransferase 38 U/L (4-50); Albumin Level 3.1 g/dL (3.5-5.1); Alkaline Phosphatase 44 U/L (38-126); Aspartate Amino Transferase 83 U/L (17-59); Bilirubin,Total 0.5 mg/dL (0.2-1.3); Blood Urea Nitrogen 21 mg/dL (9-20); CRP 15.7 mg/dL (<1.0); Calcium 8.1 mg/dL (8.4-10.2); Carbon Dioxide 27 mmol/L (22-30); Chloride 108 mmol/L (98-107); Estimated CRCL calculation 84 ml/min; Estimated Glomerular Filt Rate > 60; Glucose 87 mg/dL (75-110); Potassium 4.3 mmol/L (3.4-5.0); Sodium 139 mmol/L (137-145)
[2020-01-27 06:00] VITALS: BP 124/70; PULSE 71; RESP 20; TEMP 36.9; O2SAT 95
[2020-01-27] MEDS: ASPIRIN 81 MG ENTERIC TABLET PO (08:20)
[2020-01-27] MEDS: DOCUSATE SODIUM LIQ 100 MG/10 ML UDC 50 MG PO (08:20)
[2020-01-27] MEDS: buPROPion HCL XL (24 HR) 150 MG TABCR PO (08:20)
[2020-01-27] MEDS: DABIGATRAN ETEXILATE 150 MG CAPSULE PO ×2 (08:20→17:14)
[2020-01-27 14:00] VITALS: BP 117/90; PULSE 63; RESP 18; TEMP 37; O2SAT 98
--- NOTE | 2020-01-27 14:22 | WPDINFPN2 ---
Progress Note: A&P Assessment and Plan (1) Fever of unknown origin (FUO): Code(s): R50.9 - Fever, unspecified Status: Acute Assessment and Plan: 1. Fever with rigors, due to Gram negative bacteremia with infection, source not identified as yet, but I suspect urinary source. No updates on blood isolate today. 2. BPH 3. 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 His present illness is not due to this diagnosis. REC Ctx #3, continue. If this is found to be Enterobacteriacae such as E coli, I favor tract as the source. No LP needed. He is very eager to go home, but discussed with him that we need final micro results before oral therapy. If oral antibiotic such as cefdinir shows activity, then ok for discharge sooner than 01/28 dose. Antibiotics needed overall through 02/02. He should see his primary MD at [facility] re: hematuria f/u, and to discuss other meds for his BPH. See me prn Subjective Date/time seen: 01/27/20 14:22 Interval history: I reviewed 134 pages of [facility] records sent here yesterday. He notes no effect from the tamsulosin, and has chronic urgency and nocturia. Exam Narrative: Exam Narrative: afebrile Const: General: no acute distress Resp: Effort & Inspection: normal respiratory effort Auscultation: clear to auscultation bilaterally Cardio: Rate: regular rate Rhythm: regular rhythm Heart sounds: no murmurs GI: Inspection: non-distended GI Palp: Yes Soft to palpation and No Tenderness to palpation present (GI) : Other: no cvat Objective Data Vital Signs Vital Signs: Vital Signs - 24 hr 01/26/20 22:00 01/27/20 06:00 Temperature 36.1 C L 36.9 C Pulse Rate 74 71 Respiratory Rate 20 20 Blood Pressure 124/68 124/70 Pulse Oximetry 97 95 Intake/Output Intake/Output: Intake & Output 01/24/20 01/25/20 01/26/20 01/27/20 23:59 23:59 23:59 23:59 Intake Total 3550 3890 1600 920 Output Total 100 2700 1500 Balance 3450 1190 100 920 Meds/Results Medications: Active Medications Generic Name Dose Route Start Last Admin Trade Name Freq PRN Reason Stop Dose Admin Aspirin 81 mg 01/25/20 09:00 01/27/20 08:20 Aspirin Ec PO 81 mg DAILY RIRI Administration Bupropion HCl 150 mg 01/25/20 09:00 01/27/20 08:20 Wellbutrin Xl (24 Hr) PO 150 mg QAM RIRI Administration Dabigatran 150 mg 01/24/20 17:00 01/27/20 08:20 Pradaxa PO 150 mg BID RIRI Administration Docusate Sodium 50 mg 01/25/20 09:00 01/27/20 08:20 Colace Liquid PO 02/24/20 09:01 50 mg DAILY RIRI Administration Ceftriaxone Sodium/Dextrose 1 gm in 50 mls @ 100 mls/hr 01/25/20 09:00 01/27/20 08:50 Rocephin 1 Gm/D5w 50 Ml IVPB Infused Q24H RIRI Infusion Lorazepam 0.5 mg 01/24/20 20:01 01/25/20 02:31 Ativan Inj IV PUSH 0.5 mg Q6H PRN Administration Anxiety Melatonin 3 mg 01/26/20 18:31 01/26/20 21:28 Melatonin PO 3 mg HS PRN Administration Insomnia Tamsulosin HCl 0.4 mg 01/24/20 21:00 01/26/20 21:28 Flomax PO 0.4 mg HS RIRI Administration Radiology Results: ITS Impressions Head CT 01/24/20 14:02 IMPRESSION: 1. Mild nonspecific cerebral white matter disease, which likely represents chronic small vessel ischemic disease. Chest X-Ray 01/26/20 06:28 IMPRESSION: 1. Stable mild airspace opacities in the lower lung zones, likely atelectasis. Abdomen/Pelvis CT 01/26/20 11:39 IMPRESSION: 1. No CT correlate for the patient's symptoms. Venous Doppler Study 01/27/20 07:44 IMPRESSION: 1. No deep venous thrombosis. Labs Labs: Laboratory Results - last 24 hr 01/27/20 01/27/20 04:37 04:37 WBC 9.5 RBC 3.93 L Hgb 12.8 L Hct 38.4 L MCV 97.7 MCH 32.6 MCHC 33.3 RDW 14.6 H Plt Count 103 L MPV 12.2 H Immature Gran % (Auto) 0.6 H Neut % (Auto) 72.0 Lymph % (Auto) 15.8 L [place] % (Auto) 8.1 Eos % (Auto) 2.9 Baso % (Auto) 0.6 Lymph # (Auto) 1.50 [place] # (Auto) 0.8
--- NOTE | 2020-01-27 14:42 | PM.IMPN ---
Progress Note: A&P Assessment and Plan (1) Fever of unknown origin (FUO): Code(s): R50.9 - Fever, unspecified Status: Acute Assessment and Plan: 01/27/20 14:[address] velasquez has been consulted. Initially no antibiotics were prescribed however now the patient is on Rocephin 1 g. There was some suspicion for meningitis however the patient was unable to receive a spinal tap is he is on Pradaxa for his atrial fibrillation. Patient has no source of infection at this time. White count is noted to be 14.4. His neutrophil percentage is 91.4. His lactic is 3.9. C reactive protein is 2.7. Chest x-ray and urine oral clear. I have thought about getting his belly as well. However the patient is so agitated at this time I am not sure full be able to get him in the CT scanner. He does not act like he has any abdominal discomfort. Although the stated about a week ago he was complaining of some abdominal discomfort. Patient has a fever of 103.8. Please follow cultures. Patient has been swabbed for covid 19. Patient is 74-year-old male with history of atrial fibrillation on Pradaxa patient was doing essentially find day before is coming to hospital, on the day of the admission patient called his to get some help however patient was quite confused was not able to answer appropriately and may need a he did not make any sense patient was brought to the emergency department for further evaluation his temperature was 103? and denied complaint of headache, chest pain shortness of breath cough abdominal pain nausea or vomiting, concerned that patient may have meningitis but LP was not done as patient is on Pradaxa, ID was consulted Rocephin was started, today patient is more alert, also concern the patient may have a COVID-19 and being tested and under isolation, patient COVID-19 test is negative, today patient complains of generalized body ache but no fever or chills patient seen by Dr. velasquez and suspect patient has a bacteremia will continue Rocephin will follow up on blood culture and further recommendation to follow, patient states he does have history of polymyalgia rheumatica, will get the record from [facility] and will discuss with Dr. velasquez he was symptoms are related to polymyalgia rheumatica however patient does not have any temporal headache or any visual problem, today patient again seen by Dr. velasquez suspect patient has bacteremia most likely secondary urinary source pending culture report, clinically patient is improving no fever for 48 hours, Dr. velasquez is recommending continue antibiotics until blood cultures return and further recommendation to follow (2) Sepsis: Code(s): A41.9 - Sepsis, unspecified organism Status: Acute Assessment and Plan: Patient's blood pressure is on the soft side and he is tachycardic his lactic is elevated. He is receiving some IV fluids and he is on Rocephin IV piggyback. Plan is above (3) Suspected COVID-19 virus infection: Code(s): Z20.828 - Contact with and (suspected) exposure to other viral communicable diseases Status: Acute Assessment and Plan: Patient is in isolation her when we are awaiting results is negative patient is off isolation (4) BPH (benign prostatic hyperplasia): Code(s): N40.0 - Benign prostatic hyperplasia without lower urinary tract symptoms Status: Chronic Assessment and Plan: Continue with his tamsulosin (5) Hypertension: Code(s): I10 - Essential (primary) hypertension Status: Chronic Assessment and Plan: His blood pressure is on the soft side room holding his lisinopril and metoprolol. (6) Hyperlipidemia: Code(s): E78.5 - Hyperlipidemia, unspecified Status: Chronic Assessment and Plan: I am holding atorvastatin at this time. (7) Atrial fibrillation: Code(s): I48.91 - Unspecified atrial fibrillation Status: Chronic Assessment and P
[2020-01-27] MEDS: TAMSULOSIN HCL 0.4 MG CAPSULE PO (20:48)
[2020-01-27] MEDS: MELATONIN 3 MG TABLET PO (20:50)
[2020-01-27 22:00] VITALS: BP 123/67; PULSE 60; RESP 16; TEMP 36.8; O2SAT 96
[2020-01-28 05:31] VITALS: BP 132/72; PULSE 66; RESP 16; TEMP 36.8; O2SAT 94
[2020-01-28 06:52] LABS: Basophils Absolute Auto 0.1 K/mm3 (0.0-0.1); Basophils Percent Auto 0.7 % (0.2-1.2); Eosinophils Absolute Auto 0.3 K/mm3 (0-0.3); Eosinophils Percent Auto 4.6 % (0-4.4); Hematocrit 38.5 % (42.0-52.0); Hemoglobin 12.8 g/dL (14.0-18.0); Immature Granulocyte Absolute 0.03 K/mm3 (0.00-0.031); Immature Granulocyte Percent A 0.4 % (0-0.5); Lymphocytes Absolute Auto 1.76 K/mm3 (0.9-3.2); Lymphocytes Percent Auto 26.3 % (18.3-44.2); Mean Corpuscular HGB Conc 33.2 g/dl (32-36); Mean Corpuscular Hemoglobin 31.9 pg (26-34); Mean Platelet Volume 11.9 fl (7.4-10.4); Monocytes Absolute Auto 0.9 K/mm3 (0.1-0.6); Monocytes Percent Auto 12.7 % (2.6-8.5); Neutrophils Absolute Auto 3.7 K/mm3 (1.3-6.7); Neutrophils Percent Auto 55.3 % (45.5-73.1); Platelet Count Result 128 k/mm3 (150-375); Red Blood Count 4.01 M/mm3 (4.6-6.20); Red Cell Distribution Width 14.6 % (11.5-14.5); White Blood Count 6.7 K/mm3 (4.5-10.0)
[2020-01-28 07:06] LABS: Alanine Aminotransferase 35 U/L (4-50); Albumin Level 3.3 g/dL (3.5-5.1); Alkaline Phosphatase 45 U/L (38-126); Aspartate Amino Transferase 53 U/L (17-59); Bilirubin,Total 0.9 mg/dL (0.2-1.3); Blood Urea Nitrogen 19 mg/dL (9-20); CRP 6.4 mg/dL (<1.0); Calcium 8.4 mg/dL (8.4-10.2); Carbon Dioxide 27 mmol/L (22-30); Chloride 106 mmol/L (98-107); Estimated CRCL calculation 94 ml/min; Estimated Glomerular Filt Rate > 60; Glucose 95 mg/dL (75-110); Sodium 138 mmol/L (137-145)
[2020-01-28 08:00] VITALS: PULSE 66; RESP 16; O2SAT 94
[2020-01-28] MEDS: DOCUSATE SODIUM LIQ 100 MG/10 ML UDC 50 MG PO (08:30)
[2020-01-28] MEDS: ASPIRIN 81 MG ENTERIC TABLET PO (08:31)
[2020-01-28] MEDS: DABIGATRAN ETEXILATE 150 MG CAPSULE PO ×2 (08:31→18:01)
[2020-01-28] MEDS: buPROPion HCL XL (24 HR) 150 MG TABCR PO (08:31)
--- NOTE | 2020-01-28 13:44 | PM.IMPN ---
Progress Note: A&P Assessment and Plan (1) Fever of unknown origin (FUO): Code(s): R50.9 - Fever, unspecified Status: Acute Assessment and Plan: 01/28/20 13:[address] velasquez has been consulted. Initially no antibiotics were prescribed however now the patient is on Rocephin 1 g. There was some suspicion for meningitis however the patient was unable to receive a spinal tap is he is on Pradaxa for his atrial fibrillation. Patient has no source of infection at this time. White count is noted to be 14.4. His neutrophil percentage is 91.4. His lactic is 3.9. C reactive protein is 2.7. Chest x-ray and urine oral clear. I have thought about getting his belly as well. However the patient is so agitated at this time I am not sure full be able to get him in the CT scanner. He does not act like he has any abdominal discomfort. Although the stated about a week ago he was complaining of some abdominal discomfort. Patient has a fever of 103.8. Please follow cultures. Patient has been swabbed for covid 19. Patient is 74-year-old male with history of atrial fibrillation on Pradaxa patient was doing essentially find day before is coming to hospital, on the day of the admission patient called his to get some help however patient was quite confused was not able to answer appropriately and may need a he did not make any sense patient was brought to the emergency department for further evaluation his temperature was 103? and denied complaint of headache, chest pain shortness of breath cough abdominal pain nausea or vomiting, concerned that patient may have meningitis but LP was not done as patient is on Pradaxa, ID was consulted Rocephin was started, today patient is more alert, also concern the patient may have a COVID-19 and being tested and under isolation, patient COVID-19 test is negative, today patient complains of generalized body ache but no fever or chills patient seen by Dr. velasquez and suspect patient has a bacteremia will continue Rocephin will follow up on blood culture and further recommendation to follow, patient states he does have history of polymyalgia rheumatica, will get the record from [facility] and will discuss with Dr. velasquez he was symptoms are related to polymyalgia rheumatica however patient does not have any temporal headache or any visual problem, today patient again seen by Dr. velasquez suspect patient has bacteremia most likely secondary urinary source pending culture report, clinically patient is improving no fever for 48 hours, Dr. velasquez is recommending continue antibiotics until blood cultures return, today premilinary blood culture showed gram-negative bacilli as growing will follow up on sensitivity and identification, and further recommendation to follow, patient stats her had 2 good BM and her feels better. denies any fever or chills, stats feeling better on wants to go home. (2) Sepsis: Code(s): A41.9 - Sepsis, unspecified organism Status: Acute Assessment and Plan: Patient's blood pressure is on the soft side and he is tachycardic his lactic is elevated. He is receiving some IV fluids and he is on Rocephin IV piggyback. Plan is above (3) Suspected COVID-19 virus infection: Code(s): Z20.828 - Contact with and (suspected) exposure to other viral communicable diseases Status: Acute Assessment and Plan: Patient is in isolation her when we are awaiting results is negative patient is off isolation (4) BPH (benign prostatic hyperplasia): Code(s): N40.0 - Benign prostatic hyperplasia without lower urinary tract symptoms Status: Chronic Assessment and Plan: Continue with his tamsulosin (5) Hypertension: Code(s): I10 - Essential (primary) hypertension Status: Chronic Assessment and Plan: His blood pressure is on the soft side room holding his lisinopril and metoprolol. (6) Hyperlipidemia: Code(s): E78.5 - H
[2020-01-28 14:00] VITALS: BP 116/57; PULSE 62; RESP 18; TEMP 36.3; O2SAT 99
[2020-01-28] MEDS: TAMSULOSIN HCL 0.4 MG CAPSULE PO (20:27)
[2020-01-28] MEDS: MELATONIN 3 MG TABLET PO (20:27)
[2020-01-28 22:00] VITALS: BP 120/79; PULSE 48; RESP 16; TEMP 36.7; O2SAT 95
[2020-01-29 05:16] LABS: Basophils Absolute Auto 0.1 K/mm3 (0.0-0.1); Eosinophils Absolute Auto 0.4 K/mm3 (0-0.3); Eosinophils Percent Auto 5.9 % (0-4.4); Hematocrit 41.4 % (42.0-52.0); Hemoglobin 13.9 g/dL (14.0-18.0); Immature Granulocyte Absolute 0.06 K/mm3 (0.00-0.031); Immature Granulocyte Percent A 0.8 % (0-0.5); Lymphocytes Absolute Auto 2.44 K/mm3 (0.9-3.2); Lymphocytes Percent Auto 34.5 % (18.3-44.2); Mean Corpuscular HGB Conc 33.6 g/dl (32-36); Mean Corpuscular Hemoglobin 32.6 pg (26-34); Mean Corpuscular Volume 97.2 fl (80-100); Mean Platelet Volume 11.8 fl (7.4-10.4); Monocytes Absolute Auto 0.9 K/mm3 (0.1-0.6); Monocytes Percent Auto 13.2 % (2.6-8.5); Neutrophils Absolute Auto 3.2 K/mm3 (1.3-6.7); Neutrophils Percent Auto 44.6 % (45.5-73.1); Platelet Count Result 152 k/mm3 (150-375); Red Blood Count 4.26 M/mm3 (4.6-6.20); Red Cell Distribution Width 14.6 % (11.5-14.5); White Blood Count 7.1 K/mm3 (4.5-10.0)
[2020-01-29 05:31] LABS: Alanine Aminotransferase 36 U/L (4-50); Albumin Level 3.7 g/dL (3.5-5.1); Alkaline Phosphatase 56 U/L (38-126); Aspartate Amino Transferase 42 U/L (17-59); Bilirubin,Total 1.2 mg/dL (0.2-1.3); Blood Urea Nitrogen 16 mg/dL (9-20); CRP 4.6 mg/dL (<1.0); Calcium 9.1 mg/dL (8.4-10.2); Carbon Dioxide 27 mmol/L (22-30); Chloride 105 mmol/L (98-107); Estimated CRCL calculation 94 ml/min; Estimated Glomerular Filt Rate > 60; Glucose 101 mg/dL (75-110); Potassium 3.9 mmol/L (3.4-5.0); Sodium 138 mmol/L (137-145)
[2020-01-29 06:00] VITALS: BP 115/53; PULSE 73; RESP 16; TEMP 36.7; O2SAT 95
[2020-01-29 08:00] VITALS: PULSE 73; RESP 16; O2SAT 95
[2020-01-29] MEDS: DOCUSATE SODIUM LIQ 100 MG/10 ML UDC 50 MG PO (08:27)
[2020-01-29] MEDS: ASPIRIN 81 MG ENTERIC TABLET PO (08:29)
[2020-01-29] MEDS: DABIGATRAN ETEXILATE 150 MG CAPSULE PO ×2 (08:29→17:00)
[2020-01-29] MEDS: buPROPion HCL XL (24 HR) 150 MG TABCR PO (08:30)
[2020-01-29 13:47] VITALS: BP 127/88; PULSE 65; RESP 18; TEMP 36.7; O2SAT 97
--- NOTE | 2020-01-29 15:31 | PM.IMPN ---
Progress Note: A&P Assessment and Plan (1) Fever of unknown origin (FUO): Code(s): R50.9 - Fever, unspecified Status: Acute Assessment and Plan: 01/29/20 15:[address] velasquez has been consulted. Initially no antibiotics were prescribed however now the patient is on Rocephin 1 g. There was some suspicion for meningitis however the patient was unable to receive a spinal tap is he is on Pradaxa for his atrial fibrillation. Patient has no source of infection at this time. White count is noted to be 14.4. His neutrophil percentage is 91.4. His lactic is 3.9. C reactive protein is 2.7. Chest x-ray and urine oral clear. I have thought about getting his belly as well. However the patient is so agitated at this time I am not sure full be able to get him in the CT scanner. He does not act like he has any abdominal discomfort. Although the stated about a week ago he was complaining of some abdominal discomfort. Patient has a fever of 103.8. Please follow cultures. Patient has been swabbed for covid 19. Patient is 74-year-old male with history of atrial fibrillation on Pradaxa patient was doing essentially find day before is coming to hospital, on the day of the admission patient called his to get some help however patient was quite confused was not able to answer appropriately and may need a he did not make any sense patient was brought to the emergency department for further evaluation his temperature was 103? and denied complaint of headache, chest pain shortness of breath cough abdominal pain nausea or vomiting, concerned that patient may have meningitis but LP was not done as patient is on Pradaxa, ID was consulted Rocephin was started, today patient is more alert, also concern the patient may have a COVID-19 and being tested and under isolation, patient COVID-19 test is negative, today patient complains of generalized body ache but no fever or chills patient seen by Dr. velasquez and suspect patient has a bacteremia will continue Rocephin will follow up on blood culture and further recommendation to follow, patient states he does have history of polymyalgia rheumatica, will get the record from [facility] and will discuss with Dr. velasquez he was symptoms are related to polymyalgia rheumatica however patient does not have any temporal headache or any visual problem, today patient again seen by Dr. velasquez suspect patient has bacteremia most likely secondary urinary source pending culture report, clinically patient is improving no fever for 48 hours, Dr. velasquez is recommending continue antibiotics until blood cultures return, today premilinary blood culture showed gram-negative bacilli as growing will follow up on sensitivity and identification, and further recommendation to follow, patient stats he had 2 good BM on 01/27 and he feels better. denies any fever or chills, stats feeling better on wants to go home. hopefully will know results of blood culture tomorrow, and may discharge him on oral abx. (2) Sepsis: Code(s): A41.9 - Sepsis, unspecified organism Status: Acute Assessment and Plan: Patient's blood pressure is on the soft side and he is tachycardic his lactic is elevated. He is receiving some IV fluids and he is on Rocephin IV piggyback. Plan is above (3) Suspected COVID-19 virus infection: Code(s): Z20.828 - Contact with and (suspected) exposure to other viral communicable diseases Status: Acute Assessment and Plan: Patient is in isolation her when we are awaiting results is negative patient is off isolation (4) BPH (benign prostatic hyperplasia): Code(s): N40.0 - Benign prostatic hyperplasia without lower urinary tract symptoms Status: Chronic Assessment and Plan: Continue with his tamsulosin (5) Hypertension: Code(s): I10 - Essential (primary) hypertension Status: Chronic Assessment and Plan: His blood pressure is on the soft
[2020-01-29 20:00] VITALS: PULSE 69; RESP 16; O2SAT 98
[2020-01-29] MEDS: TAMSULOSIN HCL 0.4 MG CAPSULE PO (20:29)
[2020-01-29 21:15] VITALS: BP 131/80; PULSE 69; RESP 16; TEMP 36.5; O2SAT 98
--- NOTE | 2020-01-29 21:18 | PC.NURSE ---
Pt requesting that Colace continues at home. Pt is on liquid and I explained that it may be bought over the counter and would not need a script for this.
[2020-01-30 05:49] VITALS: BP 114/67; PULSE 95; RESP 18; TEMP 36.6; O2SAT 97
[2020-01-30 06:08] LABS: Basophils Absolute Auto 0.1 K/mm3 (0.0-0.1); Basophils Percent Auto 0.9 % (0.2-1.2); Eosinophils Absolute Auto 0.4 K/mm3 (0-0.3); Eosinophils Percent Auto 4.2 % (0-4.4); Hematocrit 43.6 % (42.0-52.0); Hemoglobin 14.5 g/dL (14.0-18.0); Immature Granulocyte Absolute 0.13 K/mm3 (0.00-0.031); Immature Granulocyte Percent A 1.4 % (0-0.5); Lymphocytes Absolute Auto 2.86 K/mm3 (0.9-3.2); Lymphocytes Percent Auto 31.6 % (18.3-44.2); Mean Corpuscular HGB Conc 33.3 g/dl (32-36); Mean Corpuscular Volume 96.2 fl (80-100); Mean Platelet Volume 11.7 fl (7.4-10.4); Monocytes Absolute Auto 1.3 K/mm3 (0.1-0.6); Monocytes Percent Auto 14.7 % (2.6-8.5); Neutrophils Absolute Auto 4.3 K/mm3 (1.3-6.7); Neutrophils Percent Auto 47.2 % (45.5-73.1); Platelet Count Result 207 k/mm3 (150-375); Red Blood Count 4.53 M/mm3 (4.6-6.20); Red Cell Distribution Width 14.4 % (11.5-14.5)
[2020-01-30 06:26] LABS: Alanine Aminotransferase 38 U/L (4-50); Albumin Level 4.2 g/dL (3.5-5.1); Alkaline Phosphatase 59 U/L (38-126); Aspartate Amino Transferase 41 U/L (17-59); Bilirubin,Total 1.3 mg/dL (0.2-1.3); Blood Urea Nitrogen 16 mg/dL (9-20); Calcium 9.3 mg/dL (8.4-10.2); Carbon Dioxide 30 mmol/L (22-30); Chloride 102 mmol/L (98-107); Estimated CRCL calculation 84 ml/min; Estimated Glomerular Filt Rate > 60; Glucose 96 mg/dL (75-110); Sodium 137 mmol/L (137-145)
[2020-01-30] MEDS: DABIGATRAN ETEXILATE 150 MG CAPSULE PO (08:16)
[2020-01-30] MEDS: buPROPion HCL XL (24 HR) 150 MG TABCR PO (08:16)
[2020-01-30] MEDS: ASPIRIN 81 MG ENTERIC TABLET PO (08:16)
[2020-01-30] MEDS: DOCUSATE SODIUM LIQ 100 MG/10 ML UDC 50 MG PO (08:17)
[2020-01-30 13:57] VITALS: BP 121/66; PULSE 69; RESP 17; TEMP 36.7; O2SAT 100
--- NOTE | 2020-01-30 14:45 | WPDINFPN2 ---
Progress Note: A&P Assessment and Plan (1) Fever of unknown origin (FUO): Code(s): R50.9 - Fever, unspecified Status: Acute Assessment and Plan: 1. Fever with rigors, due to Gram negative bacteremia with infection, suspect urinary source. Non viable in lab. 2. BPH 3. 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 REC Ctx #6, stop and place on cefdinir, see orders. Ok discharge. See his primary MD at [facility] regarding his hematuria and for possible change in the therapy of his BPH. Subjective Date/time seen: 01/30/20 14:45 Interval history: his urgency has resolved for now. Has less frequent nocturia vs prior to admission Exam Narrative: Exam Narrative: afebrile Const: General: no acute distress Eyes: General: appearance normal, both eyes and all related structures GI: Inspection: non-distended GI Palp: Yes Soft to palpation : Other: no cvat Skin: General skin exam: normal color and no rashes or lesions noted Objective Data Vital Signs Vital Signs: Vital Signs - 24 hr 01/29/20 20:00 01/29/20 21:15 01/30/20 05:49 Temperature 36.5 C 36.6 C Pulse Rate 69 69 95 Respiratory Rate 16 16 18 Blood Pressure 131/80 114/67 Pulse Oximetry 98 98 97 01/30/20 13:57 Temperature 36.7 C Pulse Rate 69 Respiratory Rate 17 Blood Pressure 121/66 Pulse Oximetry 100 Intake/Output Intake/Output: Intake & Output 01/27/20 01/28/20 01/29/20 01/30/20 23:59 23:59 23:59 23:59 Intake Total 1710 1070 2370 1280 Balance 1710 1070 2370 1280 Meds/Results Medications: Active Medications Generic Name Dose Route Start Last Admin Trade Name Freq PRN Reason Stop Dose Admin Aspirin 81 mg 01/25/20 09:00 01/30/20 08:16 Aspirin Ec PO 81 mg DAILY RIRI Administration Bupropion HCl 150 mg 01/25/20 09:00 01/30/20 08:16 Wellbutrin Xl (24 Hr) PO 150 mg QAM RIRI Administration Cefdinir 300 mg 01/31/20 09:00 Omnicef PO 02/03/20 21:01 Q12HR RIRI Dabigatran 150 mg 01/24/20 17:00 01/30/20 08:16 Pradaxa PO 150 mg BID RIRI Administration Docusate Sodium 50 mg 01/25/20 09:00 01/30/20 08:17 Colace Liquid PO 02/24/20 09:01 50 mg DAILY RIRI Administration Lorazepam 0.5 mg 01/24/20 20:01 01/25/20 02:31 Ativan Inj IV PUSH 0.5 mg Q6H PRN Administration Anxiety Melatonin 3 mg 01/26/20 18:31 01/28/20 20:27 Melatonin PO 3 mg HS PRN Administration Insomnia Tamsulosin HCl 0.4 mg 01/24/20 21:00 01/29/20 20:29 Flomax PO 0.4 mg HS RIIR Administration Radiology Results: ITS Impressions Head CT 01/24/20 14:02 IMPRESSION: 1. Mild nonspecific cerebral white matter disease, which likely represents chronic small vessel ischemic disease. Chest X-Ray 01/26/20 06:28 IMPRESSION: 1. Stable mild airspace opacities in the lower lung zones, likely atelectasis. Abdomen/Pelvis CT 01/26/20 11:39 IMPRESSION: 1. No CT correlate for the patient's symptoms. Venous Doppler Study 01/27/20 07:44 IMPRESSION: 1. No deep venous thrombosis. Labs Labs: Laboratory Results - last 24 hr 01/30/20 01/30/20 04:52 04:52 WBC 9.0 RBC 4.53 L Hgb 14.5 Hct 43.6 MCV 96.2 MCH 32.0 MCHC 33.3 RDW 14.4 Plt Count 207 MPV 11.7 H Immature Gran % (Auto) 1.4 H Neut % (Auto) 47.2 Lymph % (Auto) 31.6 Donley % (Auto) 14.7 H Eos % (Auto) 4.2 Baso % (Auto) 0.9 Lymph # (Auto) 2.86 Donley # (Auto) 1.3 H Eos # (Auto) 0.4 H Baso # (Auto) 0.1 Abs Immat Gran (auto) 0.13 H Absolute Neuts (auto) 4.3 Absolute Nucleated RBC 0.0 Nucleated RBC % 0.0 Sodium 137 Potassium 4.0 Chloride 102 Carbon Dioxide 30 BUN 16 Creatinine 0.90 Estim Creat Clear Calc 84 Estimated GFR > 60 Glucose 96 Calcium 9.3 Total Bilirubin 1.3 AST 41 ALT 38 Alkaline Phosphatase 59 C-Reactive Protein 3.0 H Total Protein 7.0 Albumin 4.2
--- NOTE | 2020-02-19 13:51 | P.DS_ITS ---
DS: Admitting Diagnosis Admitting Diagnosis Admitting Diagnosis: Sepsis, unspecified organism DS: Discharge Diagnosis Discharge Diagnosis (1) Fever of unknown origin (FUO): Code(s): R50.9 - Fever, unspecified Status: Acute Assessment and Plan: 01/29/20 15:[address] velasquez has been consulted. Initially no antibiotics were prescribed however now the patient is on Rocephin 1 g. There was some suspicion for meningitis however the patient was unable to receive a spinal tap is he is on Pradaxa for his atrial fibrillation. Patient has no source of infection at this time. White count is noted to be 14.4. His neutrophil percentage is 91.4. His lactic is 3.9. C reactive protein is 2.7. Chest x-ray and urine oral clear. I have thought about getting his belly as well. However the patient is so agitated at this time I am not sure full be able to get him in the CT scanner. He does not act like he has any abdominal discomfort. Although the stated about a week ago he was complaining of some abdominal discomfort. Patient has a fever of 103.8. Please follow cultures. Patient has been swabbed for covid 19. Patient is 74-year-old male with history of atrial fibrillation on Pradaxa patient was doing essentially find day before is coming to hospital, on the day of the admission patient called his to get some help however patient was quite confused was not able to answer appropriately and may need a he did not make any sense patient was brought to the emergency department for further evaluation his temperature was 103? and denied complaint of headache, chest pain shortness of breath cough abdominal pain nausea or vomiting, concerned that patient may have meningitis but LP was not done as patient is on Pradaxa, ID was consulted Rocephin was started, today patient is more alert, also concern the patient may have a COVID-19 and being tested and under isolation, patient COVID- 19 test is negative, today patient complains of generalized body ache but no fever or chills patient seen by Dr. velasquez and suspect patient has a bacteremia will continue Rocephin will follow up on blood culture and further recommendation to follow, patient states he does have history of polymyalgia rheumatica, will get the record from [facility] and will discuss with Dr. velasquez he was symptoms are related to polymyalgia rheumatica however patient does not have any temporal headache or any visual problem, today patient again seen by Dr. velasquez suspect patient has bacteremia most likely secondary urinary source pending culture report, clinically patient is improving no fever for 48 hours, Dr. velasquez is recommending continue antibiotics until blood cultures return, today premilinary blood culture showed gram-negative bacilli as growing will follow up on sensitivity and identification, and further recommendation to follow, patient stats he had 2 good BM on 01/27 and he feels better. denies any fever or chills, stats feeling better on wants to go home. hopefully will know results of blood culture tomorrow, and may discharge him on oral abx. (2) Sepsis: Code(s): A41.9 - Sepsis, unspecified organism Status: Acute Assessment and Plan: Patient's blood pressure is on the soft side and he is tachycardic his lactic is elevated. He is receiving some IV fluids and he is on Rocephin IV piggyback. Plan is above (3) Suspected COVID-19 virus infection: Code(s): Z20.828 - Contact with and (suspected) exposure to other viral communicable diseases Status: Acute Assessment and Plan: Patient is in isolation her when we are awaiting results is negative patient is off isolation (4) BPH (benign prostatic hyperp
== END 2020-01-30 15:06 | disposition home or self-care (01) | DRG 872 ==
LOC: ANHED 14:34 → ANHICU 16:26 → ANH2MED 01-25 18:45
PROVIDERS: Family Medicine; Admitting Provider Family Medicine; Emergency Provider Emergency Medicine; Visit Provider Family Medicine
DX: A41.50 Gram-negative sepsis, unspecified (principal); Z20.828 Contact with and (suspected) exposure to other viral communicable diseases; R50.9 Fever, unspecified; R41.82 Altered mental status, unspecified; N40.0 Benign prostatic hyperplasia without lower urinary tract symptoms; I10 Essential (primary) hypertension; E78.5 Hyperlipidemia, unspecified; I48.91 Unspecified atrial fibrillation; R79.89 Other specified abnormal findings of blood chemistry; D72.829 Elevated white blood cell count, unspecified; Z79.02 Long term (current) use of antithrombotics/antiplatelets
CPT/HCPCS: 36415; 51701; 70450; 71045; 71046; 74176; 80053; 81001; 83605; 85025; 85055; 85380; 85610; 85730; 86140; 87040; 87086; 87635; 87804; 93005; 93970; 96361; 96365; 96375; 97161; 97165; 99285; A9270; C9803; J0131; J0696; J1630; J1885; J2060; J7030; U0003